=== PATIENT | female | born 1975 | race Caucasian/White ===

== ENCOUNTER 2023-11-13 12:57 | Emergency (ER) | payer BC, OTHER ==
[2023-11-13] MEDS ORDERED: Ketorolac Tromethamine 30 MG (1 mL) VIAL ONE (13:37)
[2023-11-13] MEDS ORDERED: Ondansetron PF 4 MG/2 ML Vial ONE (13:37)
[2023-11-13] MEDS ORDERED: Sodium Chloride 0.9% 1,000 ML ONE (13:37)
[2023-11-13] MEDS ORDERED: Tamsulosin HCl 0.4 MG CAP ONE (13:37)
[2023-11-13 13:55] LABS: #Basophils 0.2 thou/uL (0.0-0.2); #Eosinphils 0.2 thou/uL (0.0-0.7); #Lymphocytes 3.6 thou/uL (1.20-3.40); #Monocytes 0.9 thou/uL (0.11-0.59); %Basophils 1.8 % (0.0-1.0); %Eosinophils 1.9 % (0.0-10.0); %Lymphocytes 40.9 % (21.0-51.0); %Monocytes 9.8 % (0.0-10.0); %Neutrophils 45.7 % (42.0-75.0); Hematocrit 33.8 % (36.0-47.0); Hemoglobin 10.1 g/dL (12.0-16.0); Mean Corpuscular HGB CONC 29.9 g/dL (32.0-36.0); Mean Corpuscular Hemoglobin 24.9 pg (27.0-31.0); Mean Corpuscular Volume 83.4 fl (78.0-98.0); Mean Platelet Volume 7.3 fL (7.4-10.4); Platelet Count 281 10x3/uL (130-400); RBC Distribution Width 14.8 % (11.5-14.5); Red Blood Cell (RBC) Count 4.06 mill/uL (4.20-5.40); White Blood Cell (WBC) Count 8.8 10x3/uL (4.8-10.8)
[2023-11-13] MEDS ORDERED: Morphine 4 MG/ML VIAL ONE (14:03)
[2023-11-13 14:05] LABS: Bilirubin Negative (Negative); Blood, Urine Large (Negative); Glucose, Urine (Dipstick) Negative (Negative); Ketone, Urine Negative (Negative); Leukocyte Negative (Negative); Nitrite Negative (Negative); Protein, Urine (Dipstick) Negative (Neg-Trace); Urobilinogen 0.2 mg/dL (Less than 2); pH, Urine 7.5 (5.0-9.0)
[2023-11-13 14:11] LABS: Clarity Hazy (Clear); RBC/HPF Greater than 50 HPF (0-3)
[2023-11-13] MEDS ORDERED: fentaNYL 50 mcg/mL 1 mL Vial ONE (14:35)
[2023-11-13] MEDS ORDERED: HYDROcodone/Acetaminophen 5/325 mg Tablet ONE (14:35)
== END 2023-11-13 15:33 | disposition home or self-care (01) ==
LOC: NAV ERS 12:57
DX: N20.0 Calculus of kidney (principal); I10 Essential (primary) hypertension
CPT/HCPCS: 81001; 85025; 96361; 96374; 96375; J1885; J2270; J2405; J3010; J7050